=== PATIENT | male | born 1945 | race Caucasian/White ===

== ENCOUNTER 2017-05-22 16:32 | Emergency (ER) | payer MEDICARE, OTHER ==
[2017-05-22] MEDS ORDERED: SODIUM CHLORIDE 0.9% 500 ML IV STA (16:46)
[2017-05-22] MEDS ORDERED: SODIUM CHLORIDE 0.9% 1,000 ML IV STA (16:46)
[2017-05-22] MEDS ORDERED: MORPHINE SULFATE 4 MG/ML SYRINGE IV STA (16:46)
[2017-05-22] MEDS ORDERED: KETOROLAC 30 MG/ML 1 ML VIAL IVP STA (16:47)
[2017-05-22] MEDS ORDERED: ACETAMINOPHEN IV (For NPO) 1,000 MG in EMPTY BAG 1 BAG IVPB STA (16:48)
--- NOTE | 2017-05-22 16:48 | ED ---
General Adult HPI - General Chief complaint: Extremity Problem,Nontraumatic Stated complaint: Elbow Pain Time Seen by Provider: 05/22/17 16:45 Source: patient, RN notes reviewed, old records reviewed Mode of arrival: ambulatory Limitations: no limitations - History of Present Illness Initial comments: This is a 9-year-old middle ear for evaluation of elbow pain. Severe right elbow pain. Inability to flex or extend right elbow. Patient denies trauma, denies fever, denies redness or warmth. Symptoms for 2 days and progressively worsening, no modifying factors for symptoms. No prior history of similar symptoms - Related Data Home Medications Medication Instructions Recorded Confirmed Flecainide [Tambocor] 100 mg PO Q12HR 02/02/16 06/26/16 Lisinopril [Prinivil] 10 mg PO DAILY 02/02/16 06/26/16 Pravastatin Sodium [Pravachol] 40 mg PO HS 02/02/16 06/26/16 Rivaroxaban [Xarelto] 20 mg PO HS 02/02/16 06/26/16 HYDROcodone/APAP 5-325MG [[place] 1 tab PO BID PRN 06/25/16 06/26/16 5-325] Metoprolol Tartrate [Lopressor] 25 mg PO BID 06/25/16 06/26/16 Allergies Allergy/AdvReac Type Severity Reaction Status Date / Time No Known Allergies Allergy Verified 05/22/17 16:41 Review of Systems ROS Statement: Those systems with pertinent positive or pertinent negative responses have been documented in the HPI. ROS Other: All systems not noted in ROS Statement are negative. Past Medical History Past Medical History: Atrial Fibrillation, Hyperlipidemia, Hypertension, Osteoarthritis (OA) Additional Past Medical History / Comment(s): hx migraines, History of Any Multi-Drug Resistant Organisms: None Reported Past Surgical History: Tonsillectomy Additional Past Surgical History / Comment(s): surgery on muscle of rt eye Past Anesthesia/Blood Transfusion Reactions: Motion Sickness Past Psychological History: No Psychological Hx Reported Smoking Status: Never smoker Past Alcohol Use History: Occasional Past Drug Use History: None Reported - Past Family History Mother Family Medical History: No Reported History General Exam - General Exam Comments Initial Comments: Decreased range of motion upper extremity Limitations: no limitations General appearance: alert, in no apparent distress Head exam: Present: atraumatic, normocephalic, normal inspection Eye exam: Present: normal appearance, PERRL, EOMI. Absent: scleral icterus, conjunctival injection, periorbital swelling ENT exam: Present: normal exam, mucous membranes moist Neck exam: Present: normal inspection. Absent: tenderness, meningismus, lymphadenopathy Respiratory exam: Present: normal lung sounds bilaterally. Absent: respiratory distress, wheezes, rales, rhonchi, stridor Cardiovascular Exam: Present: regular rate, normal rhythm, normal heart sounds. Absent: systolic murmur, diastolic murmur, rubs, gallop, clicks GI/Abdominal exam: Present: soft, normal bowel sounds. Absent: distended, tenderness, guarding, rebound, rigid Extremities exam: Present: normal inspection, full ROM, normal capillary refill. Absent: tenderness, pedal edema, joint swelling, calf tenderness Back exam: Present: normal inspection Neurological exam: Present: alert, oriented X3, CN II-XII intact Psychiatric exam: Present: normal affect, normal mood Skin exam: Present: warm, dry, intact, normal color. Absent: rash Course Vital Signs 05/22/17 16:39 Temperature 98.5 F Pulse Rate 80 Respiratory 20 Rate Blood Pressure 127/85 O2 Sat by Pulse 97 Oximetry - Reevaluation(s) Reevaluation #1: 05/22/17 17:19 Patient has better pain control at this time Procedures - Orthopedic Splinting/Casting Injury #1 Side: right Upper Extremity Injury Location: elbow Upper Extremity Immobilizer: sling/shoulder immobilizer, posterior splint Medical Decision Making - Medical Decision Making 72 male EMS with unknown injury but with positive right elbow fracture, elbow fracture is splinted and [place] patient can be discharged to follow-up with orthopedics - Radiology Data Radiology results: report reviewed (X-ray and will positive for fracture, posterior fat pad, anterior sail sign, suspected radial head), image reviewed Disposition Clinical Impression: Elbow fracture, right, Humeral head fracture Disposition: HOME SELF-CARE Condition: Good Instructions: Elbow Fracture in Adults (ED) Referrals: Raymond Issa MD [Primary Care Provider] - 1-2 days
[2017-05-22 17:19] LABS: Basophils # (A) 0.1 k/uL (0-0.2); Basophils % (A) 1 %; CH 33.5; CHCM 36.3; Eosinophils # (A) 0.3 k/uL (0-0.7); Eosinophils % (A) 3 %; HCT 44.8 % (39.0-53.0); HDW 2.56; HGB 15.5 gm/dL (13.0-17.5); Luc # (Auto) 0.35; Luc % (Auto) 3; Lymphocytes # (A) 3.7 k/uL (1.0-4.8); Lymphocytes % (A) 29 %; MCHC 34.6 g/dL (31.0-37.0); MCV 92.6 fL (80.0-100.0); Mean Platelet Volume 7.9; Monocytes # (A) 0.9 k/uL (0-1.0); Monocytes % (A) 7 %; Neutrophils # (A) 7.2 k/uL (1.3-7.7); Neutrophils % (A) 58 %; RBC 4.84 m/uL (4.30-5.90); RDW 14.2 % (11.5-15.5); WBC 12.5 k/uL (3.8-10.6); WBC (Perox) 11.96
[2017-05-22 17:44] LABS: ALT 39 U/L (21-72); AST 23 U/L (17-59); Alkaline Phosphatase 64 U/L (38-126); Anion Gap 10 mmol/L; Blood Urea Nitrogen 19 mg/dL (9-20); Calcium 9.4 mg/dL (8.4-10.2); Carbon Dioxide 25 mmol/L (22-30); Chloride 102 mmol/L (98-107); Glucose 103 mg/dL (74-99); Non-African American GFR(MDRD) >60 (>60 ml/min/1.73 sqM); Phosphorous 4.6 mg/dL (2.5-4.5); Potassium 4.8 mmol/L (3.5-5.1); Sodium 137 mmol/L (137-145); Total Protein 6.7 g/dL (6.3-8.2)
[2017-05-22 17:49] VITALS: BP 140/80; PULSE 75; RESP 18; TEMP 98.3
== END 2017-05-22 17:49 | disposition home or self-care (01) ==
LOC: EC 16:32
DX: S42.301A Unspecified fracture of shaft of humerus, right arm, initial encounter for closed fracture (principal); I48.91 Unspecified atrial fibrillation; E78.5 Hyperlipidemia, unspecified; I10 Essential (primary) hypertension; M19.90 Unspecified osteoarthritis, unspecified site; Z79.899 Other long term (current) drug therapy
CPT/HCPCS: 36415; 80053; 83735; 84100; 85025; 86140; 87040; 99284; 29105; 96374; 96375 ×2; J2270; J1885; J0131

== ENCOUNTER 2018-04-10 18:37 | Emergency (ER) | payer MEDICARE ==
--- NOTE | 2018-04-10 20:10 | ED ---
General Adult HPI - General Chief complaint: Extremity Problem,Nontraumatic Stated complaint: lt hand pain/swelling Time Seen by Provider: 04/10/18 19:02 Source: patient, RN notes reviewed Mode of arrival: ambulatory Limitations: no limitations - History of Present Illness Initial comments: 73-year-old male presents to the emergency department for a chief complaint of swelling of the left hand. Patient states he was seen in urgent care and was diagnosed with cellulitis and given Keflex. Patient states it started off as a small area of erythema over the left thumb and has since spread over the dorsal left hand and wrist. Patient denies streaking up the arm. Patient denies any fevers or chills at home. Patient denies a history of gout. He does have a history of osteoarthritis. Patient denies remembering being bitten by anything.Patient has no other complaints at this time including shortness of breath, chest pain, abdominal pain, nausea or vomiting, headache, or visual changes. - Related Data Home Medications Medication Instructions Recorded Confirmed Flecainide [Tambocor] 100 mg PO Q12HR 02/02/16 06/26/16 Lisinopril [Prinivil] 10 mg PO DAILY 02/02/16 06/26/16 Pravastatin Sodium [Pravachol] 40 mg PO HS 02/02/16 06/26/16 Rivaroxaban [Xarelto] 20 mg PO HS 02/02/16 06/26/16 HYDROcodone/APAP 5-325MG [[place] 1 tab PO BID PRN 06/25/16 06/26/16 5-325] Metoprolol Tartrate [Lopressor] 25 mg PO BID 06/25/16 06/26/16 Previous Rx's Medication Instructions Recorded HYDROcodone/APAP 5-325MG [[place] 1 tab PO Q6HR PRN #30 tab 05/22/17 5-325] Amoxicillin/Potassium Clav 1 tab PO Q12HR #20 tab 04/10/18 [Augmentin 875-125 Tablet] Allergies Allergy/AdvReac Type Severity Reaction Status Date / Time No Known Allergies Allergy Verified 04/10/18 19:08 Review of Systems ROS Statement: Those systems with pertinent positive or pertinent negative responses have been documented in the HPI. ROS Other: All systems not noted in ROS Statement are negative. Past Medical History Past Medical History: Atrial Fibrillation, Hyperlipidemia, Hypertension, Osteoarthritis (OA) Additional Past Medical History / Comment(s): hx migraines, History of Any Multi-Drug Resistant Organisms: None Reported Past Surgical History: Tonsillectomy Additional Past Surgical History / Comment(s): surgery on muscle of rt eye Past Anesthesia/Blood Transfusion Reactions: Motion Sickness Past Psychological History: No Psychological Hx Reported Smoking Status: Never smoker Past Alcohol Use History: Occasional Past Drug Use History: None Reported - Past Family History Mother Family Medical History: No Reported History General Exam Limitations: no limitations General appearance: alert, in no apparent distress Head exam: Present: atraumatic, normocephalic, normal inspection Eye exam: Present: normal appearance ENT exam: Present: normal exam, mucous membranes moist Neck exam: Present: normal inspection, full ROM. Absent: tenderness, meningismus, lymphadenopathy Respiratory exam: Present: normal lung sounds bilaterally. Absent: respiratory distress, wheezes, rales, rhonchi, stridor Cardiovascular Exam: Present: regular rate, normal rhythm, normal heart sounds. Absent: systolic murmur, diastolic murmur, rubs, gallop, clicks Extremities exam: Present: tenderness (Tenderness to the dorsal left hand and wrist.), normal capillary refill (Capillary refill less than 2 seconds and radial pulse 2+ in the upper extremities bilaterally), joint swelling (Patient does have moderate swelling noted to the dorsal left hand. It is somewhat warm to touch. It is possibly a cellulitic reaction but does not feel exceptionally warm to touch. It is also possibly a local reaction. No tenderness of the flexor tendons in the hand.). Absent: full ROM (Patient has limited flexion and extension of the wrist about [address]. Patient is able to fully extend the fingers in the left hand and is able to flex the fingers to about 90 .), other (No streaking redness, abscess, or drainage noted of the left hand.) Course Vital Signs 04/10/18 04/10/18 19:05 20:15 Temperature 97.8 F 97.6 F Pulse Rate 100 86 Respiratory 20 18 Rate Blood Pressure 138/87 137/96 O2 Sat by Pulse 98 98 Oximetry Medical Decision Making - Medical Decision Making 73-year-old male presents to the emergency department for a chief complaint of swelling of the left dorsal hand 5 days. Patient was started on Keflex 2 days ago for cellulitis. He states it is still swollen but movement has significantly improved. States yesterday he was unable to move his hand but today he does have increased range of motion. No fevers or chills at home. On exam patient does have moderate swelling of the left hand on the dorsal aspect. No tenderness to the palmar aspect including flexor tendons. Erythema is mildly warm to touch and it is possibly a cellulitic reaction. It could also be a local reaction to an unknown bug bite. Patient will be treated with Augmentin to increase coverage of cellulitis. He will also be educated to take Benadryl. Discussed with patient to return to the emergency department if symptoms are not improving or worsening including if he has fevers or streaking redness or spreading redness up the arm. He can also follow up with primary care. Dr. Sullivan also saw the patient and agrees with care plan Disposition Clinical Impression: Hand swelling Disposition: HOME SELF-CARE Condition: Good Instructions: Cellulitis (ED) Additional Instructions: Please take antibiotic as directed. Please take Benadryl as well. If symptoms worsen, you develop fever, or you have streaking or spreading redness return to the emergency department. Follow up with primary care in 1-2 days. Prescriptions: Amoxicillin/Potassium Clav [Augmentin 875-125 Tablet] 1 tab PO Q12HR #20 tab Is patient prescribed a controlled substance at d/c from ED?: No Referrals: Raymond Issa MD [Primary Care Provider] - 1-2 days Time of Disposition: 20:07
[2018-04-10 20:16] VITALS: BP 137/96; PULSE 86; RESP 18; TEMP 97.6
== END 2018-04-10 20:15 | disposition home or self-care (01) ==
LOC: EC 18:37
DX: M79.89 Other specified soft tissue disorders (principal); I48.91 Unspecified atrial fibrillation; E78.5 Hyperlipidemia, unspecified; I10 Essential (primary) hypertension; Z79.01 Long term (current) use of anticoagulants; Z79.899 Other long term (current) drug therapy
CPT/HCPCS: 99283

== ENCOUNTER 2018-05-04 17:17 | Emergency (ER) | payer MEDICARE ==
[2018-05-04 17:23] VITALS: BP 145/99; PULSE 69; RESP 20; TEMP 98.2
[2018-05-04] MEDS ORDERED: IBUPROFEN 800 MG TAB PO STA (17:45)
--- NOTE | 2018-05-04 17:55 | ED ---
General Adult HPI - General Chief complaint: Extremity Injury, Upper Stated complaint: RT ARM AND SHOULDER INJURY Time Seen by Provider: 05/04/18 17:34 Source: patient, RN notes reviewed Mode of arrival: ambulatory Limitations: no limitations - History of Present Illness Initial comments: 73-year-old male with past medical history of atrial fibrillation who presents today for chief complaint of fall and right elbow and shoulder pain. Patient states that Friday around 10 PM he was walking his driveway when he tripped awning on his right outstretched hand, he immediately noticed 10/10 pain in the elbow without radiation. In addition pt noted limited of range of motion at the elbow and anterior shoulder. Pt thought that he was just sore from the fall, and presented to the ER today when symptoms persisted. Pt cant sleep well due to the pain and it has not been alleviated with his norco that he takes daily for chronic pain. Pt denies chest pain, palpatations, shortness of breath or dizziness prior to the fall and states that it was for sure mechanical in nature. Pt denies numbness, paresthesia, loss sensation, muscle weakness of the right upper extremity, hitting head, LOC or injury to neck/back or any other extremity. Patient denies any recent fever, chills, shortness of breath, chest pain, back pain, abdominal pain, nausea or vomiting, numbness or tingling, dysuria or hematuria, constipation or diarrhea, headaches or visual changes, or any other complaints. - Related Data Home Medications Medication Instructions Recorded Confirmed Lisinopril [Prinivil] 10 mg PO DAILY 02/02/16 05/04/18 Rivaroxaban [Xarelto] 20 mg PO HS 02/02/16 05/04/18 HYDROcodone/APAP 5-325MG [[place] 1 tab PO BID PRN 06/25/16 05/04/18 5-325] Metoprolol Tartrate [Lopressor] 25 mg PO BID 06/25/16 05/04/18 Rosuvastatin Calcium [Crestor] 5 mg PO HS 05/04/18 05/04/18 Allergies Allergy/AdvReac Type Severity Reaction Status Date / Time No Known Allergies Allergy Verified 05/04/18 17:30 Review of Systems ROS Statement: Those systems with pertinent positive or pertinent negative responses have been documented in the HPI. ROS Other: All systems not noted in ROS Statement are negative. Constitutional: Denies: fever, chills Eyes: Denies: eye pain ENT: Denies: ear pain Respiratory: Denies: cough, dyspnea, wheezes, hemoptysis, stridor Cardiovascular: Denies: chest pain, palpitations, orthopnea, edema Endocrine: Denies: fatigue Gastrointestinal: Denies: abdominal pain, nausea, vomiting Genitourinary: Denies: urgency, dysuria Musculoskeletal: Reports: as per HPI, joint swelling (swelling of right elbow), arthralgia. Denies: back pain Skin: Denies: rash, lesions, change in color Neurological: Denies: headache, weakness, numbness, paresthesias, confusion, abnormal gait Past Medical History Past Medical History: Atrial Fibrillation (currently on xarelto and metoprolol tartate), Hyperlipidemia, Hypertension, Osteoarthritis (OA) Additional Past Medical History / Comment(s): hx migraines, History of Any Multi-Drug Resistant Organisms: None Reported Past Surgical History: Tonsillectomy Additional Past Surgical History / Comment(s): surgery on muscle of rt eye Past Anesthesia/Blood Transfusion Reactions: Motion Sickness Past Psychological History: No Psychological Hx Reported Smoking Status: Never smoker Past Alcohol Use History: Occasional Past Drug Use History: None Reported - Past Family History Mother Family Medical History: No Reported History General Exam - General Exam Comments Initial Comments: General: The patient is awake and alert, in no distress, and does not appear acutely ill. Eye: Pupils are equal, round and reactive to light, extra-ocular movements are intact. No nystagmus. There is normal conjunctiva bilaterally. No signs of icterus. Ears, nose, mouth and throat: There are moist mucous membranes and no oral lesions. Neck: The neck is supple, there is no tenderness or JVD. Cardiovascular: There is a regular rate and irregular rhythm. No murmur, rub or gallop is appreciated. Respiratory: Lungs are clear to auscultation, respirations are non-labored, breath sounds are equal. No wheezes, stridor, rales, or rhonchi. Musculoskeletal: Sof tissue swelling noted to the right elbow region, no ecchymosis. No palpable or obvious defect or step off. Pt refuses to fully range at shoulder, elbow or wrist of the RUE secondary to pain, tenderness to patient over the right wrist, elbow and anterior shoulder.Sensation intact of the upper extremities equally bilaterally, no badge paresthesias or loss sensation. Radial and ulnar pulses equal bilaterally 2+. Capillary refill less than 2 seconds. Patient is able to make the okay, fingers crossed, finger opposition and stop sign-median, ulnar and radial n intact. Compartments are soft and compressible of the UE equally b/l. Neurological: A&O x 3. CN II-XII intact, There are no obvious motor or sensory deficits. Coordination appears grossly intact. Speech is normal. Skin: Skin is warm and dry and no rashes or lesions are noted. Psychiatric: Cooperative, appropriate mood & affect, normal judgment. Limitations: no limitations Course Vital Signs 05/04/18 17:19 Temperature 98.2 F Pulse Rate 69 Respiratory 20 Rate Blood Pressure 145/99 O2 Sat by Pulse 99 Oximetry Medical Decision Making - Medical Decision Making XR of the right shoulder (-), XR of the right elbow revealed posterior fat pad sign concerning for occult radial head fracture. Pt was placed in sling. XR of the right hand revealed widening at the scaphoid lunate joint. Pt had positive snuff box examination and was placed in splint from thumb down along radial aspect of the right arm until cleared by orthopedic surgery for possible underlying scaphoid injury. Pt was given his norco home dose here at hospital for pain management. Neurovascular exam intact. Compartments soft and compressible. pt was d/c with 24-48 f/u with orthopedic surgery and instructed to use ibuprofen and tylenol for pain mgmt as needed. Pt agreed with plan and was d/c in stable condition after case discussed in detail with Dr. Cervantes. - Lab Data Lab Results 05/04/18 Range/Units 18:25 PT 9.7 (9.0-12.0) sec INR 1.0 (<1.2) APTT 23.3 (22.0-30.0) sec Disposition Clinical Impression: Right elbow pain, Right hand pain, Right shoulder pain Narrative: suspected occult fracture of right radial head, impression #2 widening if scaphoid lunate joint, concerning for occult scaphoid injury Disposition: HOME SELF-CARE Condition: Good Instructions: Elbow Fracture (ED) Additional Instructions: Please use home medication as discussed for pain as needed and prescribed. Please follow-up with orthopedic surgery within 72 hours for repeat imagine and further evaluation/treatment. Please return to emergency room if the symptoms increase or worsen or for any other concerns as discussed. Is patient prescribed a controlled substance at d/c from ED?: No Referrals: Raymond Issa MD [Primary Care Provider] - 1-2 days Blaise Zaidi DO [Doctor of Osteopathic Medicine] - 1-2 days Time of Disposition: 19:03
--- NOTE | 2018-05-04 18:13 | XR ---
EXAMINATION TYPE: XR shoulder complete RT DATE OF EXAM: 05/04/2018 COMPARISON: NONE HISTORY: Pain TECHNIQUE: 3 views FINDINGS: There is some spurring at the glenohumeral joint. There is spurring at the AC joint. I see no fracture nor dislocation. IMPRESSION: Osteoarthritis. No fracture seen.
--- NOTE | 2018-05-04 18:15 | XR ---
EXAMINATION TYPE: XR elbow complete RT DATE OF EXAM: 05/04/2018 COMPARISON: NONE HISTORY: Elbow pain TECHNIQUE: 3 views FINDINGS: There is some spurring on the olecranon process of the ulna. There is posterior fat pad sig n. I see no fracture line. IMPRESSION: There is probably elbow joint effusion. No fracture seen however. Large olecranon process spur.
--- NOTE | 2018-05-04 18:23 | XR ---
EXAMINATION TYPE: XR wrist complete RT DATE OF EXAM: 05/04/2018 COMPARISON: NONE HISTORY: Wrist pain and swelling TECHNIQUE: 4 views FINDINGS: I see no fracture nor dislocation. There is calcification in the triangular cartilage. Ther e is also calcification in the articular cartilage of the radiocarpal joint. There is slight widening of the scapholunate joint space. There is spurring at the first carpometacarpal joint. IMPRESSION: There is some osteoarthritis and chondrocalcinosis. No fracture seen.
[2018-05-04 18:45] LABS: Partial Thromboplastin Time 23.3 sec (22.0-30.0); Prothrombin Time 9.7 sec (9.0-12.0)
[2018-05-04] MEDS ORDERED: HYDROcodone/APAP 5-325MG 1 EACH TAB PO STA (18:50)
--- NOTE | 2018-05-06 07:53 | CDI ---
Documentation Clarification OP Dear CARYN Chung/ Sung Cervantes, DO Please do addendum to ED report for missing type of splint applied. Thank you, Palomo Martínez Junior Database Administrator If you have any questions, please contact Director Of Admissions at [phone] [facility]
== END 2018-05-04 19:15 | disposition home or self-care (01) ==
LOC: EC 17:17
DX: M79.641 Pain in right hand (principal); M25.521 Pain in right elbow; M25.511 Pain in right shoulder; I48.91 Unspecified atrial fibrillation; E78.5 Hyperlipidemia, unspecified; I10 Essential (primary) hypertension; M19.90 Unspecified osteoarthritis, unspecified site; Z79.01 Long term (current) use of anticoagulants; Z79.899 Other long term (current) drug therapy; W01.0XXA Fall on same level from slipping, tripping and stumbling without subsequent striking against object, initial encounter; Y92.014 Private driveway to single-family (private) house as the place of occurrence of the external cause; Y93.01 Activity, walking, marching and hiking
CPT/HCPCS: 29125; 36415; 85610; 85730; 99284

== ENCOUNTER → 2018-05-21 | Day surgery (SDC) | payer MEDICARE ==
[2018-05-18 14:30] VITALS: BMI 30.8
[~2018-05-21] MED LIST: LIDOCAINE 1% 20 ML VIAL (10MG/ML) FOR IV START INTRADERMA ONE; PROPOFOL 10 MG/ML 20 ML VIAL IV ONE
[2018-05-21 11:12] VITALS: RESP 16; TEMP 97.8
[2018-05-21] MEDS: LACTATED RINGERS 1,000 ML IV SCH ×2 (11:17→11:48)
--- NOTE | 2018-05-21 12:20 | P.PCN ---
Date of Procedure: 05/21/18 Procedure(s) Performed: Procedure: Total colonoscopy and polypectomy. Preoperative diagnosis: Screening for neoplasia.. Postoperative diagnosis: 2 small/diminutive polyps snared/fulgurated, but no large polyps or cancer. Preparation: HalfLytely prep. Sedation: Was provided by anesthesia. Brief clinical history: The patient is a 73-year-old male who is scheduled for this evaluation for screening for neoplasia age being his risk factor. He had a prior exam more than 10 years ago, and he does not believe he had any polyps removed. He has no abdominal complaints, bleeding or anemia. There is no family history of colon cancer. Procedure: With the patient on his left lateral decubitus position and after informed consent and adequate sedation, the perianal area was inspected and it did not show any fissures or fistulas. There were no masses felt on digital rectal examination. The Olympus CFQ 160L video colonoscope was then inserted in the rectum in the usual fashion and advanced to the cecum. The mucosa appeared healthy. There was a small polyp in the proximal right colon which was snared and retrieved by suction and there was a diminutive polyp in the rectum close to the rectosigmoid junction which was fulgurated with the snare but there were no large polyps or tumors or any obvious diverticular disease or other pathology. I retroflexed the endoscope in the rectum before the endoscope was withdrawn. The patient tolerated the procedure well. Plan: The patient was reassured. Will follow up with you as planned and I recommended a repeat exam in 5 years depending on his overall health at that time. He will discuss that with you.
[2018-05-21 12:52] VITALS: BP 150/103; PULSE 79
== END | disposition home or self-care (01) ==
LOC: ORWHC2ENDO 10:38
DX: Z12.11 Encounter for screening for malignant neoplasm of colon (principal); D12.2 Benign neoplasm of ascending colon; K62.1 Rectal polyp; I48.91 Unspecified atrial fibrillation; I10 Essential (primary) hypertension; E78.5 Hyperlipidemia, unspecified; M19.90 Unspecified osteoarthritis, unspecified site; Z79.891 Long term (current) use of opiate analgesic; Z79.01 Long term (current) use of anticoagulants; Z79.899 Other long term (current) drug therapy
CPT/HCPCS: 88305; 45385; J2704

== ENCOUNTER → 2018-06-03 | Outpatient (CLI) | payer MEDICARE ==
--- NOTE | 2018-06-03 14:01 | XR ---
EXAMINATION TYPE: XR cervical spine limited DATE OF EXAM: 06/03/2018 COMPARISON: NONE HISTORY: 73-year-old male muscle spasm for 3 days TECHNIQUE: 4 views FINDINGS: Uncovertebral joint and facet arthropathy with bulky anterior bridging endplate spondylosis especiall y from C4 through C7 levels impressing on to the posterior wall of the hypopharynx. Alignment is main tained. Limited odontoid view shows no gross abnormality. No predental space widening or prevertebral soft tissue swelling. Additional degenerative change at the C1 dens articulation. Mild heterotopic o ssification in the posterior midline soft tissues. 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 No malalignment or p revertebral soft tissue swelling.
== END | disposition home or self-care (01) ==
LOC: RADXRMAIN 13:14
PROVIDERS: ATTEND Nurse Practitioner Adult Health
DX: M47.812 Spondylosis without myelopathy or radiculopathy, cervical region (principal)
CPT/HCPCS: 72040

== ENCOUNTER 2018-11-01 21:56 | Emergency (ER) | payer MEDICARE, OTHER ==
[2018-11-01] MEDS ORDERED: HYDROcodone/APAP 7.5-325MG 1 EACH TAB PO ONE (22:19)
--- NOTE | 2018-11-01 22:57 | XR ---
EXAM: XR Left Knee, 3 views CLINICAL HISTORY: Pain TECHNIQUE: Three views of the left knee. COMPARISON: No relevant prior studies available. FINDINGS: Bones/joints: Linear lucency noted through the superior aspect of the patella which may represent a non-displaced fracture. Tricompartment degenerative changes. Small joint effusion. No dislocation. Soft tissues: Unremarkable. Vasculature: Vascular calcifications. IMPRESSION: Linear lucency noted through the superior aspect of the patella which may represent a non-displaced fracture.
--- NOTE | 2018-11-01 23:02 | XR ---
EXAM: XR Left Femur, 2 Views CLINICAL HISTORY: Pain TECHNIQUE: Frontal and lateral views of the left femur. COMPARISON: No relevant prior studies available. FINDINGS: Bones/joints: No acute fracture or traumatic malalignment of the femur. Soft tissues: Unremarkable. IMPRESSION: No acute findings.
[2018-11-01] MEDS ORDERED: ACET/COD 300 MG/30 MG STARTER PACK 6 TAB BTL PO STA (23:11)
--- NOTE | 2018-11-01 23:11 | ED ---
General Adult HPI - General Chief complaint: Extremity Injury, Lower Stated complaint: Knee pain Time Seen by Provider: 11/01/18 22:13 Source: patient, RN notes reviewed, old records reviewed Mode of arrival: wheelchair Limitations: no limitations - History of Present Illness Initial comments: 73-year-old male patient with past medical history of atrial fibrillation, hyperlipidemia, hypertension, anticoagulated on xaralto. Presents to ED after sustaining a knee injury to days prior. Patient reports that 2 days ago he slipped on ice and fell onto a flexed left knee. Pt complains of L knee pain and left distal femur pain. Patient denies any other injury sustained. Pt denies any trauma to head or neck. Patient reports that he has been ambulatory , with pain in his left knee. Patient denies any other complaints. Patient denies chest pain, shortness of breath, abdominal pain. Systemic: Pt denies fatigue, myalgia, fever/chills, rash. Pt denies weakness, night sweats, weight loss. Neuro: Pt denies headache, visual disturbances, syncope or pre-syncope. HEENT: Pt denies ocular discharge or irritation, otalgia, rhinorrhea, pharyngitis or notable lymphadenopathy. Cardiopulmonary: Pt denies chest pain, SOB, heart palpitations, dyspnea on exertion. Abdominal/GI: Pt denies abdominal pain, n/v/d. : Pt denies dysuria, burning w/ urination, frequency/urgency. Denies new onset urinary or bowel incontinence. Neuro: Pt denies new onset weakness, paresthesias. - Related Data Home Medications Medication Instructions Recorded Confirmed Lisinopril [Prinivil] 10 mg PO DAILY 02/02/16 11/01/18 Rivaroxaban [Xarelto] 20 mg PO HS 02/02/16 11/01/18 HYDROcodone/APAP 5-325MG [[place] 1 tab PO BID PRN 06/25/16 11/01/18 5-325] Metoprolol Tartrate [Lopressor] 25 mg PO BID 06/25/16 11/01/18 Pravastatin Sodium [Pravachol] 40 mg PO HS 11/01/18 11/01/18 Allergies Allergy/AdvReac Type Severity Reaction Status Date / Time No Known Allergies Allergy Verified 11/01/18 22:37 Review of Systems ROS Statement: Those systems with pertinent positive or pertinent negative responses have been documented in the HPI. ROS Other: All systems not noted in ROS Statement are negative. Past Medical History Past Medical History: Atrial Fibrillation, Hyperlipidemia, Hypertension, Osteoarthritis (OA) Additional Past Medical History / Comment(s): hx migraines, History of Any Multi-Drug Resistant Organisms: None Reported Past Surgical History: Tonsillectomy Additional Past Surgical History / Comment(s): surgery on muscle of rt eye Past Anesthesia/Blood Transfusion Reactions: Previous Problems w/ Anesthesia Additional Past Anesthesia/Blood Transfusion Reaction / Comment(s): STATES TAKES LONGER TO PUT TO SLEEP Past Psychological History: No Psychological Hx Reported Smoking Status: Never smoker - Past Family History Mother Family Medical History: No Reported History General Exam - General Exam Comments Initial Comments: Constitutional: NAD, AOX3, Pt has pleasant affect. HEENT: NC/AT, trachea midline, neck supple, no lymphadenopathy. Posterior pharynx non erythematous, without exudates. External ears appear normal, without discharge. Mucous membranes moist. Eyes PERRLA, EOM intact. There is no scleral icterus. No pallor noted. Cardiopulmonary: RRR, no murmurs, rubs or gallops, no JVD noted. Lungs CTAB in anterior and posterior zamora. No peripheral edema. Abdominal exam: Abdomen soft and non-distended. Abdomen non-tender to palpation in all 4 quadrants. Bowel sounds active in LLQ. No hepatosplenomegaly. No ecchymosis Neuro: CN II-XII grossly intact. No nuchal rigidity. No cervical spinal tenderness. MSK: Mild amount of edema noted on L knee. Active ROM limited secondary to pain. Passive ROM intact with pain. No posterior calf tenderness bilaterally, homans sign negative bilaterally. Posterior tibialis and radial pulse +2 bilaterally and equal. Sensation intact in upper and lower extremities. Limitations: no limitations Course Vital Signs 11/01/18 22:05 Temperature 98.3 F Pulse Rate 105 H Respiratory 20 Rate Blood Pressure 104/70 O2 Sat by Pulse 96 Oximetry Medical Decision Making - Medical Decision Making 73-year-old male patient with past medical history of atrial fibrillation, hyperlipidemia, hypertension, anticoagulated on xaralto. Presents to ED after sustaining a knee injury to days prior. Patient reports that 2 days ago he slipped on ice and fell onto a flexed left knee. Pt complains of L knee pain and left distal femur pain. Patient denies any other injury sustained. Pt denies any trauma to head or neck. Patient reports that he has been ambulatory , with pain in his left knee. Patient denies any other complaints. Pt VSS, afebrile. Mild amount of edema noted on L knee. Plain film of left knee displayed a linear lucency noted at the superior aspect of the patella which represent a Nondisplaced Fracture. Plain film of femur was negative. Patient diagnosed with a patellar fracture. Patient placed in a knee immobilizer. Patient to not bear weight until follow-up with orthopedic consult. Patient to call orthopedic consult tomorrow. Patient to follow up with primary care physician tomorrow. Patient to return to ED if new signs symptoms develop or if condition worsens in any way. Case discussed in depth with Dr. Vega. Pt not driving home. Disposition Clinical Impression: Patella fracture Disposition: HOME SELF-CARE Condition: Stable Instructions (If sedation given, give patient instructions): Patellar Fracture (ED) Additional Instructions: Patient to adhere to previously discussed treatment plan and will take medication(s) as directed. Patient to follow up with PCP in 1-2 days. Patient to return to ED if symptoms do not improve. Please call orthopedic consult tomorrow Please call PCP tomorrow Do not bear weight until orthopedic consult Is patient prescribed a controlled substance at d/c from ED?: No Referrals: Raymond Issa MD [Primary Care Provider] - 1-2 days José Antonio Talley MD [STAFF PHYSICIAN] - 1-2 days
[2018-11-01 23:43] VITALS: BP 156/80; PULSE 89; RESP 18; TEMP 97.9
== END 2018-11-01 23:43 | disposition home or self-care (01) ==
LOC: EC 21:56
DX: S82.002A Unspecified fracture of left patella, initial encounter for closed fracture (principal); M79.652 Pain in left thigh; I48.91 Unspecified atrial fibrillation; E78.5 Hyperlipidemia, unspecified; I10 Essential (primary) hypertension; Z87.39 Personal history of other diseases of the musculoskeletal system and connective tissue; Z79.01 Long term (current) use of anticoagulants; Z79.899 Other long term (current) drug therapy; W00.0XXA Fall on same level due to ice and snow, initial encounter
CPT/HCPCS: 99284

== ENCOUNTER 2019-06-17 09:30 | Day surgery (SDC) | payer MEDICARE, OTHER ==
[2019-06-15 11:18] VITALS: BMI 30.8
[~2019-06-17 09:30] MED LIST changes: +LACTATED RINGERS 1,000 ML IV SCH; -LIDOCAINE 1% 20 ML VIAL (10MG/ML) FOR IV START INTRADERMA ONE; +LIDOCAINE 1% 20 ML VIAL (10MG/ML) FOR IV START INTRADERMA PRN; -PROPOFOL 10 MG/ML 20 ML VIAL IV ONE
[2019-06-17 10:02] VITALS: RESP 18; TEMP 97
[2019-06-17] MEDS ORDERED: MIDAZOLAM 2 MG/2 ML VIAL ONE (10:50)
[2019-06-17] MEDS ORDERED: fentaNYL (PF) 50 MCG/ML 2 ML AMP ONE (10:50)
[2019-06-17] MEDS ORDERED: PROPOFOL 10 MG/ML 20 ML VIAL IV ONE (10:50)
[2019-06-17] MEDS ORDERED: LIDOCAINE 1% INJ 10MG/ML (20 ML MDV) ONE (10:50)
--- NOTE | 2019-06-17 11:30 | P.PCN ---
Date of Procedure: 06/17/19 Description of Procedure: BRIEF HISTORY: Patient is a 74-year-old pleasant male scheduled for an elective colonoscopy as a part of surveillance after positive Cologuard. Patient denies any family history of colon cancer, change in bowel habits, blood per rectum, constipation or diarrhea. To some personal history of colon polyps. PROCEDURE PERFORMED: Colonoscopy. PREOPERATIVE DIAGNOSIS: Positive Cologuard,history of polyps. ESTIMATED BLOOD LOSS: Minimal. IV sedation per Anesthesia. PROCEDURE: After informed consent was obtained, the patient, was brought into the endoscopy unit. IV sedation was administered by Anesthesia under continuous monitoring. Digital rectal examination was normal. Initially the Olympus CF-190 flexible video colonoscope was then inserted in the rectum, gradually advanced into the cecum without any difficulty. Careful examination was performed as the scope was gradually being withdrawn. Ileocecal valve and the appendiceal orifice were visualized and appeared normal. The terminal ileum was intubated and appeared normal. Prep was excellent. Mucosa of the cecum, ascending colon, transverse colon, descending colon, sigmoid colon, and rectum appeared normal. A few scattered diverticula were noted in the sigmoid colon. Retroflexion was performed in the rectum and no lesions were seen. The patient tolerated the procedure well. IMPRESSION: Normal-appearing colon from rectum to cecum . Mild sigmoid diverticulosis. No masses, polyps or other pathology noted. RECOMMENDATIONS: Findings of this examination were discussed with the patient and his . Okay to resume high-fiber diet. Okay to resume medications. Recommend repeat colonoscopy in 5 years given the patient's history of colon polyps.
[2019-06-17 11:45] VITALS: BP 133/72; PULSE 71
== END 2019-06-17 12:26 | disposition home or self-care (01) ==
LOC: ORWHC2ENDO 09:30
PROVIDERS: ATTEND Internal Medicine
DX: K57.30 Diverticulosis of large intestine without perforation or abscess without bleeding (principal); I48.91 Unspecified atrial fibrillation; I10 Essential (primary) hypertension; E78.5 Hyperlipidemia, unspecified; G43.909 Migraine, unspecified, not intractable, without status migrainosus; Z86.010 Personal history of colon polyps; Z79.01 Long term (current) use of anticoagulants; Z79.899 Other long term (current) drug therapy; Z90.89 Acquired absence of other organs
CPT/HCPCS: 45378; J2250; J2001; J3010; J2704

== ENCOUNTER → 2022-02-13 | Outpatient (CLI) | payer MEDICARE, OTHER ==
[~2022-02-13] MED LIST changes: +BEBTELOVIMAB (EUA) 175 MG/2 ML VIAL IV NR; -LACTATED RINGERS 1,000 ML IV SCH; -LIDOCAINE 1% 20 ML VIAL (10MG/ML) FOR IV START INTRADERMA PRN; +SODIUM CHLORIDE 0.9% 500 ML 500 ML in EMPTY BAG 1 BAG IV PRN
[2022-02-13 13:54] VITALS: BP 112/79; RESP 16; TEMP 98.4
== END | disposition home or self-care (01) ==
LOC: PROCWHC3 12:57
PROVIDERS: ATTEND Internal Medicine
DX: U07.1 COVID-19 (principal)
CPT/HCPCS: Q0222; M0222

== ENCOUNTER 2022-03-14 12:16 | Emergency (ER) | payer MEDICARE, OTHER ==
[2022-03-14 12:36] VITALS: BP 161/93; PULSE 83; RESP 14; TEMP 97.8
--- NOTE | 2022-03-14 13:02 | XR ---
EXAMINATION TYPE: XR elbow complete RT DATE OF EXAM: 03/14/2022 COMPARISON: 05/04/2018 HISTORY: Pain, swelling TECHNIQUE: 3 view right elbow FINDINGS: There is soft tissue swelling over the olecranon. Olecranon spur is present Radius aligns normally with the humerus. Anterior fat-pad is normal. No elevation of posterior fat pa d is evident which is normal. Some calcifications adjacent to the head of the radius appears chronic. IMPRESSION: 1. Soft tissue swelling at the olecranon. Correlate for bursitis. 2. No acute osseous abnormality. 3. Chronic appearing calcification adjacent to the head of the radius.
--- NOTE | 2022-03-14 15:46 | ED ---
Extremity Problem HPI - General Chief complaint: Extremity Injury, Upper Stated complaint: Right Elbow pain Time Seen by Provider: 03/14/22 15:02 Source: patient, family, RN notes reviewed Mode of arrival: ambulatory Limitations: no limitations - History of Present Illness Initial comments: This is a 77-year-old male who presents to the emergency department for right elbow swelling. States that this has been present for a couple of days, however, it became much worse 30 minutes prior to arrival. He finds that when he changes position of his arm he is able to reduce the amount of swelling that is present. He is unaware of any recent injuries. Denies any pain with the swelling. He has not been doing anything for the symptoms such as elevating the arm, wrapping it, or taking anti-inflammatories. Denies any fevers, chills, sore throat, cough, dyspnea, chest pain, palpitations, abdominal pain, nausea, vomiting, diarrhea, back pain, or headaches. MD Complaint: extremity swelling (Right elbow) Location: right, elbow History of Same: No Radiation: none Associated Symptoms: denies other symptoms - Related Data Home Medications Medication Instructions Recorded Confirmed Rivaroxaban [Xarelto] 20 mg PO HS 02/02/16 06/17/19 lisinopriL [Prinivil] 10 mg PO DAILY 02/02/16 06/17/19 HYDROcodone/APAP 5-325MG [[place] 1 tab PO BID PRN 06/25/16 06/17/19 5-325] Metoprolol Tartrate [Lopressor] 25 mg PO BID 06/25/16 06/17/19 Rosuvastatin Calcium [Crestor] 5 mg PO HS 06/15/19 06/17/19 Allergies Allergy/AdvReac Type Severity Reaction Status Date / Time No Known Allergies Allergy Verified 03/14/22 12:36 Review of Systems ROS Statement: Those systems with pertinent positive or pertinent negative responses have been documented in the HPI. ROS Other: All systems not noted in ROS Statement are negative. Past Medical History Past Medical History: Atrial Fibrillation, Hyperlipidemia, Hypertension, Osteoarthritis (OA), Rheumatoid Arthritis (RA) Additional Past Medical History / Comment(s): hx migraines, History of Any Multi-Drug Resistant Organisms: None Reported Past Surgical History: Tonsillectomy Additional Past Surgical History / Comment(s): surgery on muscle of rt eye, attempted cardioversion(failed) Past Anesthesia/Blood Transfusion Reactions: Previous Problems w/ Anesthesia Additional Past Anesthesia/Blood Transfusion Reaction / Comment(s): STATES TAKES LONGER TO PUT TO SLEEP Past Psychological History: No Psychological Hx Reported Smoking Status: Never smoker Past Alcohol Use History: Occasional Past Drug Use History: None Reported - Past Family History Mother Family Medical History: No Reported History General Exam Limitations: no limitations General appearance: alert, in no apparent distress Head exam: Present: atraumatic, normocephalic, normal inspection Respiratory exam: Present: normal lung sounds bilaterally. Absent: respiratory distress, wheezes, rales, rhonchi, stridor Cardiovascular Exam: Present: regular rate, normal rhythm, normal heart sounds. Absent: systolic murmur, diastolic murmur, rubs, gallop, clicks Extremities exam: Present: other (Swelling over the right olecranon bursa, palpable fluid collection, no tenderness, erythema, or increased heat.) Neurological exam: Present: alert, oriented X3, CN II-XII intact Psychiatric exam: Present: normal affect, normal mood Skin exam: Present: warm, dry, intact, normal color. Absent: rash Course Vital Signs 03/14/22 12:34 Temperature 97.8 F Pulse Rate 83 Respiratory 14 Rate Blood Pressure 161/93 O2 Sat by Pulse 98 Oximetry Medical Decision Making - Medical Decision Making This is a 77-year-old male who presents to the emergency department for right elbow swelling. X-ray reveals soft tissue swelling at the olecranon, consistent with a bursitis. Physical exam reveals a palpable fluid collection over the bursa, also consistent with a bursitis. Suspicion for a septic arthritis is very low, as there is no tenderness, overlying erythema, or increased heat and the patient has no fevers. He is instructed to wrap the arm with an Ramu wrap or use a a sleeve which can be purchased [id number]. He should take a short course of anti-inflammatories such as ibuprofen for no more than a week, as he is on Eliquis. His pharmacist has also given him permission to take antiinflammatories for short periods of time, up to 2 weeks. He is also advised to elevate the arm. He is in establish patient with [facility]. If symptoms do not improve, I advised he contact them for an appointment, as he may need to have the fluid drained. Return precautions reviewed in depth, the patient is instructed to return to the emergency department with any new, worsening, or concerning symptoms. Patient verbalized understanding. This case was discussed in detail with the attending ED physician. Presentation, findings, and treatment plan discussed in detail as well. - Radiology Data Radiology results: report reviewed, image reviewed Disposition Clinical Impression: Olecranon bursitis, right elbow Disposition: HOME SELF-CARE Instructions (If sedation given, give patient instructions): Elbow Bursitis (ED) Additional Instructions: Return to the emergency department with any new, worsening, or concerning symptoms. Wrap the arm with an Ramu wrap or use a compression sleeve which can be purchased [id number]. Take anti-inflammatories such as ibuprofen and elevate the arm. Avoid resting the arm on any hard surfaces, which can further exacerbate the problem. Contact [facility] for a follow-up appointment in the event the fluid collection in the elbow needs to be drained. Is patient prescribed a controlled substance at d/c from ED?: No Referrals: Yanique Toledo MD [Primary Care Provider] - 1-2 days
== END 2022-03-14 15:52 | disposition home or self-care (01) ==
LOC: EC 12:16
DX: M70.21 Olecranon bursitis, right elbow (principal); E78.5 Hyperlipidemia, unspecified; I10 Essential (primary) hypertension
CPT/HCPCS: 99283

== ENCOUNTER → 2023-10-31 | Outpatient (CLI) | payer MEDICARE ==
[2023-10-31 16:56] LABS: HCT 46.8 % (39.6-50.0); MCH 31.6 pg (27.0-32.0); MCHC 34.2 g/dL (32.0-37.0); MCV 92.5 FL (80.0-97.0); NRBC Per 100 WBC 0 X 10*3/uL (0.00-0.01); Platelet Count 258 X 10*3/uL (140-440); RBC 5.06 X 10*6/uL (4.40-5.60); RDW 13.2 % (11.5-14.5); WBC 9.36 X 10*3/uL (4.50-10.00)
== END | disposition home or self-care (01) ==
LOC: LABWHC1 07:19
PROVIDERS: ATTEND Orthopaedic Surgery
DX: Z01.812 Encounter for preprocedural laboratory examination (principal); M17.11 Unilateral primary osteoarthritis, right knee; I10 Essential (primary) hypertension; E78.49 Other hyperlipidemia; M11.261 Other chondrocalcinosis, right knee
CPT/HCPCS: 36415; 85027